=== PATIENT | male | born 1995 ===

== ENCOUNTER 2021-03-02 08:00 | Day surgery (SDC) | payer OTHER ==
[2021-03-02] MEDS ORDERED: RECTICARE30 GM TOP (08:08)
[2021-03-02] MEDS ORDERED: PERCOCET 5-3251 EACH PO (08:08)
== END 2021-03-02 11:00 | disposition home or self-care (01) ==
LOC: CIR.AMB 08:00
PROVIDERS: ATTEND Surgery
DX: K62.0 Anal polyp (principal); K62.6 Ulcer of anus and rectum; Z20.822 Contact with and (suspected) exposure to COVID-19